=== PATIENT | female | born 1935 | race Caucasian/White ===

== ENCOUNTER 2017-01-17 08:03 | Emergency (ER) | payer MEDICARE ==
[~2017-01-17] VITALS: Ht 162.6 cm; Wt 79.4 kg
[~2017-01-17 08:03] MED LIST: CALCIUM 600600 M2 PO; CENTRUM SILVER1 TA1 PO; DILTIAZEM360 MG PO; LEVOTHYROXINE0.1 MG PO; LEXAPRO 10 MG T10 MG PO; OMEPRAZOLE D/R20 MG PO; OMNICEF 300 MG300 MG PO; POTASSIUM CHLO20 ME2 PO; SIMVASTATIN20 MG PO; ZITHROMAX Z-PA250 M1 PO
--- OUTSIDE RECORDS SUMMARY | 2017-01-17 08:14 | External Medical Summary Rpt | CCD ---
Author Author [employer] Organization Con[employer] Address Unknown Phone Unavailable Purpose Continuity of Care Document - through 2016
--- OUTSIDE RECORDS SUMMARY | 2017-01-17 08:14 | External Medical Summary Rpt ---
Author Author NETTA Young, [employer] Organization [employer] Address Unknown Phone Unavailable
--- OUTSIDE RECORDS SUMMARY | 2017-01-17 08:14 | External Medical Summary Rpt | CCD ---
Demographics Preferred Language Thai Marital Status Unknown Hindu Affiliation Unknown Race Unknown Ethnic Group Unknown Author Author , NETTA CHADWICK Address Unknown Phone Immunization Unable to retrieve immunization data due to connection failure with Immunization Registry. Please try again later.
--- OUTSIDE RECORDS SUMMARY | 2017-01-17 08:14 | External Medical Summary Rpt | CCD ---
Author Author , NETTA Organization NETTA Address Unknown Phone [email or web address] Care Team Providers Care Consulting Sales Executive Name Role Phone Sravanthi Gutierrez MD, Unavailable Unavailable Sravanthi Gutierrez MD Purpose Continuity of Care Document - 03-05-2013 through 2016 Problems Code Diagnosis DOS Provider Status 331.0 Primary [facility] the Alzheimer type, senile onset Allergies, Adverse Reactions, Alerts Type Food Allergy Adverse Reaction to Substance Substance Reaction Severity MILK UNKNOWN Unknown MILK (FOOD) UNKNOWN Unknown Medications Na ND Rx Da Fi Fi Am Da Di Ph RX Ph St me C No te ll ll ou ys ag ar # ys at rm s nt no ma ic us Or Da si cy ia de te s n re d CE 00 01 0 No FT 40 -1 RI 97 3- Lo AX 33 20 ng ON 30 14 er E 4 1 Ac GM ti ve AL SO 00 01 0 No DI 40 -1 UM 97 3- Lo 10 20 ng CH 16 14 er LO 6 RI Ac DE ti ve 0. 9% SO LN Sa 63 01 1 No li 80 -1 ne 70 2- Lo 10 20 ng Fl 07 14 er us 5 h Ac 10 ti ML ve Sy ri ng e TY 50 01 0 No LE 58 -1 NO 00 2- Lo L 45 20 ng EX 10 14 er -S 3 TR Ac ti 50 ve [address] ET Ib 62 01 0 No up 58 -1 ro 40 2- Lo fe 74 20 ng n 70 14 er 60 1 0M Ac G ti Ta ve bl et Vital Signs 03-06-2013 01:35 Name Value Interpretat Reference Comment ion Range Body 98.5 [degF] Temperature BP 82 mm[Hg] Diastolic BP Systolic 131 mm[Hg] Heart 67 /min Rate/Pulse O2% 95 % Respiratory 21 /min Rate 03-05-2013 23:13 Name Value Interpretat Reference Comment ion Range Body 101.7 Temperature [degF] 03-05-2013 22:17 Name Value Interpretat Reference Comment ion Range BP 82 mm[Hg] Diastolic BP Systolic 166 mm[Hg] Heart 84 /min Rate/Pulse O2% 96 % Respiratory 22 /min Rate Results Labs Lab Lab Date Result Refere Interp Status Commen Order Detail nces retati t Range on URINALYSIS/COMPLETE (03-05-2013 23:15) URINE YELLOW YELLOW complet COLOR 014 ed 23:15 URINE SL CLEAR complet APPEARA 014 CLOUDY ed NCE 23:15 URINE NEGATIV NEG complet GLUCOSE 014 E ed - 23:15 DIPSTIC K URINE NEGATIV NEG complet BILIRUB 014 E ed IN - 23:15 DIPSTIC K URINE 1+ NEG complet KETONE 014 mg/dL ed 23:15 URINE 1.020 1.005-1 complet SPECIFI 014 UNK .030 ed C 23:15 GRAVITY URINE 2+ NEG complet BLOOD 014 ed 23:15 URINE 7.5 UNK 5.0-8.5 complet PH 014 ed 23:15 URINE TRACE NEG complet PROTEIN 014 mg/dL ed - 23:15 DIPSTIC K URINE 0.2 NEG complet UROBILI 014 E.U./dL ed NOGEN - 23:15 DIPSTIC K URINE NEGATIV NEG complet NITRATE 014 E ed - 23:15 DIPSTIC K URINE NEGATIV NEG complet LEUK 014 E ed ESTERAS 23:15 E URINE 10-20 0 complet RBC 014 rbc/hpf ed 23:15 URINE 20-50 0-5 complet SQUAMOU 014 #/hpf ed S CELLS 23:15 URINE TRACE NONE complet AMORPH 014 ed SEDIMEN 23:15 T COMPREHENSIVE METABOLIC PANEL (03-05-2013 22:50) Glucose 94 74-106 complet 014 mg/dL ed Bld-mCn 22:50 c BUN 11 7-18 complet Bld-mCn 014 mg/dL ed c 22:50 Creat 0112-2 0.8 0.6-1.0 complet SerPl-m 014 mg/dL ed Cnc 22:50 Creat 80 50-200 complet Cl 014 ML/MIN ed predict 22:50 ed SerPl C-G-vRa te GFR/BSA 70 59- complet .pred 014 ML/MIN ed SerPl 22:50 Schwart z-vRate Sodium 141 136-145 complet SerPl-s 014 mmoL/L ed Cnc 22:50 Potassi 3.8 3.5-5.1 complet um 014 mmoL/L ed SerPl-s 22:50 Cnc Chlorid 105 98-107 complet e 014 mmoL/L ed SerPl-s 22:50 Cnc CO2 27 21.0-32 complet SerPl-s 014 mmoL/L .0 ed Cnc 22:50 Calcium 8.2 8.5-10. complet 014 mg/dL 1 ed SerPl-m 22:50 Cnc Prot 6.9 6.4-8.2 complet SerPl-m 014 gm/dL ed Cnc 22:50 Albumin 3.6 3.4-5.0 complet 014 gm/dL ed SerPl-m 22:50 Cnc Globuli 3.3 1.3-3.2 complet n 014 gm/dL ed Ser-mCn 22:50 c Albumin 1.1 UNK 1.1-1.8 complet /Glob 014 ed SerPl-m 22:50 Rto Bilirub 0.4 0.2-1.0 complet 014 mg/dL ed SerPl-m 22:50 Cnc AST 21 U/L 15-37 complet SerPl-c 014 ed Cnc 22:50 ALT 33 U/L 30-65 complet SerPl-c 014 ed Cnc 22:50 ALP 70 U/L 50-136 complet SerPl-c 014 ed Cnc 22:50 CBC with AUTO DIFF (03-05-2013 22:50) WBC # 5.6 4.8-10. complet Bld 014 K/MM3 8 ed Auto 22:50 RBC # 03-05-2 4.09 4.2-5.4 complet Bld 014 M/mm3 ed Auto 22:50 Hgb 12.8 12.2-16 complet Bld-mCn 014 g/dL .2 ed c 22:50 Hct Fr 36.5 % 37.0-47 complet Bld 014 .0 ed 22:50 MCV RBC 89.4 fl 82.2-97 complet 014 .8 ed 22:50 MCH RBC 31.3 pg 27-31.2 complet Qn 014 ed Auto 22:50 MEAN 35.1 31.8-35 complet CORPUSC 014 g/dl .4 ed ULAR 22:50 HGB CONC RDW RBC 13.8 % 11.5-17 complet Auto 014 .5 ed 22:50 Platele 198 142-424 complet t Bld 014 K/mm3 ed Ql 22:50 Manual MEAN 7.8 fl 7.4-10. complet PLATELE 014 4 ed T 22:50 VOLUME Granulo 61.1 % 37.0-80 complet cytes 014 .0 ed Fr Bld 22:50 Auto LYMPH % 03-05-2 25.4 % 10-50.0 complet 014 ed 22:50 Monocyt 03-05-2 11.8 % 1.7-9.3 complet es Fr 014 ed Bld 22:50 Auto Eosinop 03-05-2 1.2 % 0.1-12. complet hil Fr 014 0 ed Bld 22:50 Auto Basophi 03-05-2 0.5 % 0.1-2.0 complet ls Fr 014 ed Bld 22:50 Auto Granulo 03-05-2 3.4 1.8-7.8 complet cytes # 014 K/mm3 ed Bld 22:50 Auto Lymphoc 03-05-2 1.4 0.7-4.5 complet ytes Fr 014 K/mm3 ed Bld 22:50 Auto Monocyt 03-05-2 0.7 0.1-1.0 complet es # 014 K/mm3 ed Bld 22:50 Auto Eosinop 03-05-2 0.1 0.0-0.4 complet hil # 014 K/mm3 ed Bld 22:50 Auto Basophi 0.0 0-0.2 complet ls # 014 K/MM3 ed Bld 22:50 Auto Encounters Encounter Start End Date Code Location Performer Type Date Emergency NONI Christine MD (ER) 4 21:57 4 01:37 [facility]
--- OUTSIDE RECORDS SUMMARY | 2017-01-17 08:14 | External Medical Summary Rpt | CCD ---
Demographics Preferred Language Ukrainian Marital Status Unknown Yazidism Affiliation Unknown Race Unknown Ethnic Group Unknown Author Author , NETTA CHADWICK Address Unknown Phone Immunization Unable to retrieve immunization data due to connection failure with Immunization Registry. Please try again later.
--- OUTSIDE RECORDS SUMMARY | 2017-01-17 08:14 | External Medical Summary Rpt | CCD ---
Author Author , NETTA Organization NETTA Address Unknown Phone [email or web address] Care Team Providers Care Beck Operator Name Role Phone Sravanthi Gutierrez MD, Unavailable Unavailable Sravanthi Gutierrez MD Purpose Continuity of Care Document - 03-05-2013 through 2016 Problems Code Diagnosis DOS Provider Status 331.0 Primary [facility] of the Alzheimer type, senile onset Allergies, [...] Christine MD (ER) 4 21:57 4 01:37 [facility]
--- NOTE | 2017-01-17 08:25 | Emergency Room Report ---
History of Present Illness Time Seen by MD Yin Presenting Problem in Triage Pt arrived:Ambulance Stretcher Presenting Problem:DETENTION REPORTS PT FELL IN THE HALLWAY, PT REPORTS GOT DIZZY PRIOR TO FALLING. 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 N Clinical Suspician of Infection? N Mental Status: 1 - Regular (Normal Baseline) Sepsis Risk:Low Sepsis Risk Have you (or family members/close friends) recently traveled outside the [place]? N If Yes, where/when: Have you had exposure to infectious disease within the past month? N TB? Other? Specify: Source patient, RN notes reviewed, correction records Exam Limitations no limitations Comment Pt reports she got dizzy and fell at the NH this morning just ROBOTIC WELDING OPERATOR. No LOC but pain in right hip Cardiac Chest Pain Chest pain indicative of cardiac No ALLERGIES Coded Allergies: MILK (FOOD) (From MILK (FOOD/DRUG)) (UNKNOWN 01/19/11) Home Medications Reported Medications Escitalopram Oxalate (Lexapro 10MG) 10 MG PO DAILY Multivitamin, Minerals, And (Centrum Silver) 1 TAB PO DAILY CALCIUM CARBONATE (Calcium Carbonate) 600 MG PO BID Simvastatin 20 MG PO QHS POTASSIUM CHL (Potassium Chloride) 20 MEQ PO QHS Diltiazem Hydrochloride (Diltiazem) 360 MG PO QHS Omeprazole 20 MG PO QHS LEVOTHYROXINE SOD (Synthroid) 0.88 MG PO DAILY History Medical History General CAD? No Angina: No [place]: No Hypertension? Yes Hyperlipidemia? Yes COPD? No Asthma? No Thyroid Problems? Yes Hypothyroidism? Yes CVA? No Seizures? No Diabetes? No GB Disease: No MRSA? No TB? No Cancer? No More? Yes Additional hx: MS Immunization Hx DT/Tetanus 1-4 YRS Flu THIS YR Pneumonia 1-4 YRS Surgical Hx Previous Surgery?Y Tonsils Social History Smoking Hx Smoker: Never Smoker Tobacco: No Alcohol Alcohol: No Review of Systems All Other Systems Reviewed and Negative Constitutional see HPI Musculoskeletal joint pain (right hip) Psychiatric/Neurological see HPI Physical Exam Vital Signs Vital Signs Date Time Temp Pulse Resp B/P Pulse O2 O2 Flow FiO2 Ox Delivery Rate 01/17 0832 63 173/77 01/17 805 98.3 60 20 166/78 92 General Appearance normal appearance, WD/WN, no apparent distress Respiratory Status No: respiratory distress. 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 No Results/Orders Current Medication Orders Sig/Linda Start time Last Medication Dose Route Stop Time Status Admin Acetaminophen 500 MG ONCE ONE 01/17 815 DC 01/17 PO 01/18 816 0814 Acetaminophen 0 .STK-MED ONE 01/17 809 DC PO Orders Procedure Date/time Status DIET-NOTHING BY MOUTH 01/[address] HEAD REQ 01/17 805 Complete XRAY/CT/US XRAY/CT/US XRAY hip, knee CT head CT interpretation by discussed w/radiologist Time results known: 927 CT Results normal/NAD Departure Departure Time of Disposition 927 Disposition DC Home or Self Care(routine) Clinical Impression Primary Impression: History of falling Secondary Impressions: Right hip pain Right knee pain Qualifiers: Chronicity: acute Qualified Code: M25.561 - Pain in right knee Condition STABLE Referrals Kostas Youngblood MD (Family): 2 Days-Call Office Patient Instructions DI for Closed Head Injury Additional Instructions Alternate ice and heat to the areas that hurt and continue to use whichever modality helps the most. Return to the ED as needed or followup with Dr. Youngblood as needed to evaluate for possible Normal Pressure Hydrocephalus Discharge Counseling Counseled pt/family regarding diagnosis, test results, home care, follow up needs ED Critical Care Critical Care No If Critical Care minutes are documented, the time involved in the performance of seperately reportable procedures was not counted toward critical care time documented. I directly delivered medical care to this critically ill and/or injured patient. Timely evaluation and treatment was necessary to address the significant organ system(s) dysfunction present in this patient. at 0931
--- NOTE | 2017-01-17 08:25 | Emergency Room Report ---
History of Present Illness Time Seen by MD Yin Presenting Problem in Triage Pt arrived:Ambulance Stretcher Presenting Problem:CORRECTION REPORTS PT FELL IN THE HALLWAY, PT REPORTS GOT DIZZY PRIOR TO FALLING. 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 N Clinical Suspician of Infection? N Mental Status: 1 - Regular (Normal Baseline) Sepsis Risk:Low Sepsis Risk Have you (or family members/close friends) recently traveled outside the [place]? N If Yes, where/when: Have you had exposure to infectious disease within the past month? N TB? Other? Specify: Source patient, RN notes reviewed, [facility] records Exam Limitations no limitations Comment Pt reports she got dizzy and fell at the NH this morning just AIRCRAFT ORDNANCE SYSTEMS MECHANIC. No LOC but pain in right hip Cardiac Chest Pain Chest pain indicative of cardiac No ALLERGIES Coded Allergies: MILK (FOOD) (From MILK (FOOD/DRUG)) (UNKNOWN 01/19/11) Home Medications Reported Medications Escitalopram Oxalate (Lexapro 10MG) 10 MG PO DAILY Multivitamin, Minerals, And (Centrum Silver) 1 TAB PO DAILY CALCIUM CARBONATE (Calcium Carbonate) 600 MG PO BID Simvastatin 20 MG PO QHS POTASSIUM CHL (Potassium Chloride) 20 MEQ PO QHS Diltiazem Hydrochloride (Diltiazem) 360 MG PO QHS Omeprazole 20 MG PO QHS LEVOTHYROXINE SOD (Synthroid) 0.88 MG PO DAILY History Medical History General CAD? No Angina: No [place]: No Hypertension? Yes Hyperlipidemia? Yes COPD? No Asthma? No Thyroid Problems? Yes Hypothyroidism? Yes CVA? No Seizures? No Diabetes? No GB Disease: No MRSA? No TB? No Cancer? No More? Yes Additional hx: MS Immunization Hx DT/Tetanus 1-4 YRS Flu THIS YR Pneumonia 1-4 YRS Surgical Hx Previous Surgery?Y Tonsils Social History Smoking Hx Smoker: Never Smoker Tobacco: No Alcohol Alcohol: No Review of Systems All Other Systems Reviewed and Negative Constitutional see HPI Musculoskeletal joint pain (right hip) Psychiatric/Neurological see HPI Physical Exam Vital Signs Vital Signs Date Time Temp Pulse Resp B/P Pulse O2 O2 Flow FiO2 Ox Delivery Rate 01/17 0832 63 173/77 01/17 805 98.3 60 20 166/78 92 General Appearance normal appearance, WD/WN, no apparent distress Respiratory Status No: respiratory distress. 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 No Results/Orders Current Medication Orders Sig/Linda Start time Last Medication Dose Route Stop Time Status Admin Acetaminophen 500 MG ONCE ONE 01/17 815 DC 01/17 PO 01/18 816 0814 Acetaminophen 0 .STK-MED ONE 01/17 809 DC PO Orders Procedure Date/time Status DIET-NOTHING BY MOUTH 01/[address] HEAD REQ 01/17 805 Complete XRAY/CT/US XRAY/CT/US XRAY hip, knee CT head CT interpretation by discussed w/radiologist Time results known: 927 CT Results normal/NAD Departure Departure Time of Disposition 927 Disposition DC Home or Self Care(routine) Clinical Impression Primary Impression: History of falling Secondary Impressions: Right hip pain Right knee pain Qualifiers: Chronicity: acute Qualified Code: M25.561 - Pain in right knee Condition STABLE Referrals Kostas Youngblood MD (Family): 2 Days-Call Office Patient Instructions DI for Closed Head Injury Additional Instructions Alternate ice and heat to the areas that hurt and continue to use whichever modality helps the most. Return to the ED as needed or followup with Dr. Youngblood as needed to evaluate for possible Normal Pressure Hydrocephalus Discharge Counseling Counseled pt/family regarding diagnosis, test results, home care, follow up needs ED Critical Care Critical Care No If Critical Care minutes are documented, the time involved in the performance of seperately reportable procedures was not counted toward critical care time documented. I directly delivered medical care to this critically ill and/or injured patient. Timely evaluation and treatment was necessary to address the significant organ system(s) dysfunction present in this patient. at 0931
--- NOTE | 2017-01-17 09:14 | RADIOLOGY REPORT PS360 ---
CT HEAD WITHOUT CONTRAST CT BONE WINDOWS included ORDERING PHYSICIAN : Leigh Diehl MD PATIENT AGE: 81 years GENDER: Female PROCEDURE: Routine axial images headwithout contrast. Brain & bone windows HISTORY: FALL. Head trauma. No. COMPARISON: No previous Studies for comparison no FINDINGS: No acute intracranial findings. No hemorrhage. No mass effect or mass lesion. No subdural nor extra-axial collection. Diffuse cerebral atrophy. Chronic small vessel deep white matter ischemic changes accounts for the patchy low-density surrounding the lateral ventricles. Dilatation of the lateral ventricles more so than third ventricle and cortical atrophy.,. This Most likely reflects this deep white matter ischemic changes and central atrophy.. However with the lateral ventricular dilatation is greater than the cortical atrophy., if patient develops elements of NPH triads (dementia,, ataxia, incontinence), the possibility of Normal Pressure Hydrocephalus/; communicating hydrocephalus should be kepted in mind as it is a more treatable form of dementia. The posterior fossa appear satisfactory and unremarkable. No skull fracture. No skull lesions. The visualized portions of the paranasal sinuses are clear. Mastoid air cells, middle ear & IACs are unremarkable. IMPRESSION: No acute intracranial findings. No subdural collection. No skull fracture. Diffuse cerebral atrophy, including more prominent central atrophy mainly due to the pronounced chronic small vessel deep white matter ischemic/gliotic changes periventricular regions .. The lateral ventricular dilatation appears to be somewhat more pronounced than peripheral cortical atrophy. With this appearance if patient develops clinical elements of NPH triads (dementia,, ataxia, incontinence), the possibility of Normal Pressure Hydrocephalus/; communicating hydrocephalus should be kept in mind , particularly since it is a potentially more treatable form of dementia.
--- NOTE | 2017-01-17 09:20 | RADIOLOGY REPORT PS360 ---
HIP RT 2-3V W/PELVIS IF PERFOR Ordering Physician: Leigh Diehl MD Patient Age: 81 years: Female HISTORY: FALL, R HIP PAIN TECHNIQUE: AP frog-leg view right hip along with AP pelvis COMPARISON :None available FINDINGS No acute fracture nor subluxation at the right pelvis. I believe fat plane line accounts for lucent line projecting over the inferior ramus bilaterally. Scant minor hypertrophic ridging at the superior base of femoral head bilaterally noted actually more evident on left and right. Slightly pistol-kiosk sales representative appearance of both right and left hip. Borderline narrowing superior lateral hip joint, suggesting some scant very early degenerative changes both hips. AP pelvis. Osseous pelvis is intact. Degenerative changes lower L-spine noted IMPRESSION: ... No acute fracture at right hip nor bony pelvis.
--- NOTE | 2017-01-17 09:20 | RADIOLOGY REPORT PS360 ---
HIP RT 2-3V W/PELVIS IF PERFOR Ordering Physician: Leigh Diehl MD Patient Age: 81 years: Female HISTORY: FALL, R HIP PAIN TECHNIQUE: AP frog-leg view right hip along with AP pelvis COMPARISON :None available FINDINGS No acute fracture nor subluxation at the right pelvis. I believe fat plane line accounts for lucent line projecting over the inferior ramus bilaterally. Scant minor hypertrophic ridging at the superior base of femoral head bilaterally noted actually more evident on left and right. Slightly pistol-manager deli appearance of both right and left hip. Borderline narrowing superior lateral hip joint, suggesting some scant very early degenerative changes both hips. AP pelvis. Osseous pelvis is intact. Degenerative changes lower L-spine noted IMPRESSION: ... No acute fracture at right hip nor bony pelvis.
--- NOTE | 2017-01-17 09:21 | RADIOLOGY REPORT PS360 ---
KNEE-3 VIEWS-RT Ordering Physician: Leigh Diehl MD Patient Age: 81 years: Female HISTORY: FALL TECHNIQUE: 3 views right knee COMPARISON :None FINDINGS Right knee is intact with no fracture nor dislocation. No joint effusion. Degenerative arthritic changes are evident at the knee with narrowing of the medial compartment on this nonweightbearing film. There may be some very early sharpening the joint margins as well. Mild diffuse demineralization. The soft tissues appear satisfactory IMPRESSION: No fracture nor joint effusion. With suggestion of mild developing degenerative changes right knee most evident at medial compartment
[2017-01-17 09:59] VITALS: BP 179/89
== END 2017-01-17 10:01 | disposition home or self-care (01) ==
LOC: ER 08:03
DX: M25.551 Pain in right hip (principal); M25.561 Pain in right knee; R42 Dizziness and giddiness; I10 Essential (primary) hypertension; E78.5 Hyperlipidemia, unspecified; E03.9 Hypothyroidism, unspecified; W01.0XXA Fall on same level from slipping, tripping and stumbling without subsequent striking against object, initial encounter; Y92.129 Unspecified place in nursing home as the place of occurrence of the external cause